=== PATIENT | female | born 1950 | race African-American/Black ===

== ENCOUNTER 2019-07-12 19:27 | Emergency (ER) | payer OTHER, BC ==
[2019-07-12 20:52] VITALS: TEMP 98.1; BMI 25.7
[2019-07-12] MEDS ORDERED: SODIUM CHLORIDE 0.9% 500 ML INFUS.BAG IV ONE (21:34)
--- NOTE | 2019-07-12 21:35 | PDOC ---
Documentation entered by Rosy Mcgill SCRIBE, acting as scribe for Cleopatra Lau MD. Cleopatra Lau MD: This documentation has been prepared by the Nano juarez Nirvannie, SCRIBE, under my direction and personally reviewed by me in its entirety. I confirm that the documentation accurately reflects all work, treatment, procedures, and medical decision making performed by me. History of Present Illness - General Chief Complaint: Weakness Stated Complaint: WEAKNESS Time Seen by Provider: 07/12/19 20:48 History Source: Patient Exam Limitations: No Limitations - History of Present Illness Initial Comments: 07/12/19 23:00 [id number] with significant past medical history of hypertension, CVA (no residual deficits), L renal cancer (s/p partial nephrectomy), chronic low back pain and spinal stenosis, who presents to the emergency department s/p episode of dizziness/blurry vision, tunnel vision and near syncope at approximately 8pm. As per patient, her tripped and fell rushing to her doctors appointment and upon his discharge she experienced a transient episode of feeling hot, lightheaded, nausea and blurred vision. She notes slumping over minimally without losing consciousness and lying on the bed. Patient notes she is under significant stress secondary to her medical problems and testing for her spinal stenosis, her husbands fall that prompted ED visit today, and she missed multiple meals today, last ate in the morning. She denies any loss of consciousness. No trauma. Denies fever, chills, chest pain, SOB, palpitations, V, D, abdominal pain, bladder and bowel problems, leg swelling, No new changes in medications. +stressors, fell today and hasn 't eaten all day since morning. PMD: Dr. Foote 07/12/19 23:12 Past History - Past Medical History Allergies/Adverse Reactions: Allergies Allergy/AdvReac Type Severity Reaction Status Date / Time No Known Allergies Allergy Verified 07/12/19 20:52 Cancer: Yes (kidney) CVA: Yes COPD: No HTN: Yes - Psycho Social/Smoking Cessation Hx Smoking History: Never smoked Review of Systems - Review of Systems Able to Perform ROS?: Yes Comments:: 07/12/19 23:00 Constitutional: no fevers or chills. HEENT: no headache or dizziness. No congestion. +blurry vision CVS: +Presyncope. +Lightheadedness. no cp or syncope. Resp: no sob. No cough. Gastrointestinal: no abdominal pain, or vomiting. No diarrhea. +Nausea. Genitourinary: no urinary sx, hematuria. no urgency or frequency. MUSCULOSKELETAL: No joint pain and swelling. No neck or back pain. SKIN: no redness or skin changes, no discharge, no rash. No wounds. Hematologic: no easy bruising/bleeding. NEUROLOGIC: +dizziness. No headache, LOC or altered mental status. No focal weakness, numbness or tingling. Psych: no anxiety or depression Allergic/Immunologic: no allergies All other systems reviewed and negative, or as documented in HPI. 07/12/19 23:14 *Physical Exam - Vital Signs Last Vital Signs Temp Pulse Resp BP Pulse Ox 98.1 F 77 18 167/92 99 07/12/19 20:49 07/12/19 20:49 07/12/19 20:49 07/12/19 20:49 07/12/19 20:49 - Physical Exam 07/12/19 23:00 General: Well appearing, awake and alert, NAD. HEENT: NCAT, PERRL, EOMI, clear conjunctiva, anicteric, moist mucous membranes , clear oropharynx, no oral lesions.. Neck: neck supple, FROM Resp: CTAB, normal and even respirations, no respiratory distress CVS: RRR, no murmurs, 2+ peripheral pulses throughout, no peripheral edema Abdomen: soft, NTND, no rebound or guarding. No CVAT. Back: nontender, normal inspection and ROM MSK: no edema, STREETER x4, ROM intact. No clubbing or cyanosis. normal bulk and tone. Extremities: no calf tenderness Neuro: alert, oriented appropriately; no focal neurologic deficits, speech clear. 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 finger to nose bilaterally intact, symmetric. Skin: warm and well perfused, cap refill <2 sec, normal color 07/12/19 23:15 Heart Score/ECG Review #1 ECG reviewed & interpreted by me at: 22:40 General ECG Interpretation: Sinus Rhythm, Normal Rate, Normal Intervals 07/12/19 22:55 EKG normal sinus rhythm at 71 bpm, no interval abnormalities, narrow QRS, ST and T wave segments and morphology normal. Nonspecific T wave abnormalities ED Treatment Course - LABORATORY CBC & Chemistry Diagram: 07/12/19 21:49 07/12/19 21:49 Medical Decision Making - Medical Decision Making 07/12/19 21:34 Vital Signs Temp Pulse Resp BP Pulse Ox 98.1 F 77 18 167/92 99 07/12/19 20:49 07/12/19 20:49 07/12/19 20:49 07/12/19 20:49 07/12/19 20:49 ddx near syncope, dehydration, anemia, electrolyte/metabolic derangements, ACS, arrhythmia. vasovagal gait stable, neuro intact no cp or sob. no urinary or infectious sx. no indication for urine testing. given IV hydration labs and lytes wnl, trop neg, reassuring, less likely cardiac. does not meet criteria for heart score, as pt has clear sx of near syncope 2/2 likely vasovagal etiology/limited intake and stressors today. HD appropriate here. back to baseline, gait stable, given food and PO intake, tolerated. Pt to be discharged in stable condition. Patient and family made aware of clinical impression, treatment recommendations and disposition plan, return precautions discussed (including but not limited to new or persistent/worsening symptoms, pain, fevers, or signs of infection, chest pain, respiratory distress , inability to tolerate oral intake, dehydration, syncope, or neurologic changes ). Follow up with PMD as recommended, follow up information provided, take medications as instructed for duration of time. continue with supportive care, avoid triggers and precipitants. All questions answered to patient's satisfaction and expressed understanding and comfort with this. At the time of discharge, the patient is alert, clinically improved, tolerating po and verbalizes understanding of instructions, satisfied with the care received and felt comfortable with the plan. Patient does not suffer from an acute life- threatening medical condition at this time and is safe for outpatient follow- up. 07/12/19 23:16 07/12/19 23:31 Discharge - Discharge Information Problems reviewed: Yes Clinical Impression/Diagnosis: Syncope, near, Dizziness Condition: Good Disposition: HOME - Admission No - Follow up/Referral Referrals: Juvenal Foote [Primary Care Provider] - - Patient Discharge Instructions Patient Printed Discharge Instructions: DI for Syncope in Adults (Fainting), DI for Dehydration -- Adult, DI for Dizziness-Nonvertigo Additional Instructions: 1) Please follow-up with your primary care doctor in the next 1-2 days. Please call tomorrow for for any urgent issues. you were evaluated for your dizziness/near syncopal episode likely from dehydration, poor intake and stress today. 2) You were given a copy of the tests performed today. Please bring the results with you and review them with your primary care doctor. Your laboratory / imaging results were normal, 3) If you have any worsening of symptoms or any other concerns please return to the ED immediately. Return if worsening symptoms including fevers, headache, vomiting, visual or hearing disturbances, abdominal pain, chest pain, shortness of breath, syncope, dehydration, inability to take things by mouth/vomiting, altered mental status, or worsening concerning symptoms. 4) Please continue taking your home medications as directed. avoid any stressors Stay well hydrated and rest adequately. Make an appointment. If you cannot follow-up with your primary care doctor please return to the ED - Post Discharge Activity
[2019-07-12 22:07] LABS: BASO % 0.7 % (0-2.0); EOS % 1.8 % (0-4.5); HEMATOCRIT 41.1 % (32.4-45.2); HEMOGLOBIN 13.5 GM/dL (10.7-15.3); LYMPH % 22.7 % (8-40); MCH 27.8 pg (25.7-33.7); MCHC 32.9 g/dl (32.0-36.0); MEAN CELL VOLUME 84.4 fl (80-96); MEAN PLT VOLUME 9.3 fl (7.5-11.1); MONO % 8.6 % (3.8-10.2); NEUT % 66.2 % (42.8-82.8); PLATELET COUNT 234 K/MM3 (134-434); RBC 4.88 M/mm3 (3.60-5.2); RDW 15.6 % (11.6-15.6); WHITE BLOOD COUNT 5.1 K/mm3 (4.0-10.0)
[2019-07-12 23:25] LABS: ALBUMIN 4.1 g/dl (3.4-5.0); BILIRUBIN,TOTAL 0.3 mg/dL (0.2-1); BLOOD UREA NITROGEN 19.3 mg/dL (7-18); CREATININE 0.9 mg/dL (0.55-1.3); POTASSIUM 4.3 mmol/L (3.5-5.1); TOT PROT 8.1 g/dl (6.4-8.2)
[2019-07-13] VITALS: BP 155/89; PULSE 80
--- NOTE | 2019-07-13 14:10 | EKG ---
Test Reason : Blood Pressure : / mmHG Vent. Rate : 071 BPM Atrial Rate : 071 BPM P-R Int : 160 ms QRS Dur : 078 ms QT Int : 390 ms P-R-T Axes : 048 -01 033 degrees QTc Int : 423 ms NORMAL SINUS RHYTHM POSSIBLE LEFT ATRIAL ENLARGEMENT BORDERLINE ECG NO PREVIOUS ECGS AVAILABLE Confirmed by HARIS ANDERSON MD ([id number]) on 07/13/2019 2:09:53 PM Referred By: Confirmed By:HARIS ANDERSON MD
== END 2019-07-13 00:01 | disposition home or self-care (01) ==
LOC: JER 19:27
DX: R55 Syncope and collapse (principal); R42 Dizziness and giddiness; I10 Essential (primary) hypertension; Z86.73 Personal history of transient ischemic attack (TIA), and cerebral infarction without residual deficits; M54.5 Low back pain; G89.29 Other chronic pain; M48.00 Spinal stenosis, site unspecified; Z85.528 Personal history of other malignant neoplasm of kidney; Z90.5 Acquired absence of kidney
CPT/HCPCS: 36415; 80053; 84484; 85025; 93005; 93010; 99283-25

== ENCOUNTER 2022-05-24 04:38 | Day surgery (SDC) | payer OTHER, BC ==
[2022-05-20 10:42] VITALS: BMI 26.6
[2022-05-24] MEDS ORDERED: BUPIVACAINE HCL/PF 0.5% (5 MG/ML) 30 ML VIAL IJ ONE (15:23)
[2022-05-24] MEDS ORDERED: TRIAMCINOLONE ACET 40MG/1ML VIAL IM ONE (15:23)
[2022-05-24] MEDS ORDERED: LIDOCAINE HCL 1%, 10 MG/ML (50 mL VIAL) INF ONE (15:23)
[2022-05-24] MEDS ORDERED: IOHEXOL 180 MG/1 ML ML IJ ONE (15:23)
[2022-05-24 16:05] VITALS: PULSE 72
[2022-05-24 16:12] VITALS: BP 157/86; RESP 15; TEMP 97.5
== END 2022-05-24 16:05 | disposition home or self-care (01) ==
LOC: JASU-SURG 04:38
PROVIDERS: ATTEND Pain Medicine Pain Medicine
PROC: 3E0U3BZ Introduction of Anesthetic Agent into Joints, Percutaneous Approach (ICD-10-PCS; 2022-05-24)
PROC: 3E0U33Z Introduction of Anti-inflammatory into Joints, Percutaneous Approach (ICD-10-PCS; principal; 2022-05-24 13:50)
DX: M53.3 Sacrococcygeal disorders, not elsewhere classified (principal)
CPT/HCPCS: 76000-TC-FY

== ENCOUNTER 2022-08-02 04:51 | Day surgery (SDC) | payer OTHER, BC ==
[2022-07-28 16:05] VITALS: BMI 26.6
[~2022-08-02 04:51] MED LIST: BUPIVACAINE HCL/PF 0.75% 10 ML VIAL NR ONE; LIDOCAINE HCL 1% PRESERVATIVE FREE - 30ML VIAL IJ ONE
[2022-08-02] MEDS ORDERED: BUPIVACAINE HCL/PF 0.75% 10 ML VIAL ONE (07:17)
[2022-08-02] MEDS ORDERED: LIDOCAINE HCL/PF 1% SDV 5ML VIAL ONE (07:17)
[2022-08-02 09:17] VITALS: RESP 18
[2022-08-02] MEDS ORDERED: LIDOCAINE HCL 1% PRESERVATIVE FREE - 30ML VIAL IJ ONE (10:37)
[2022-08-02] MEDS ORDERED: BUPIVACAINE HCL/PF 0.75% 10 ML VIAL NR ONE (10:39)
[2022-08-02 12:02] VITALS: BP 150/86; PULSE 68; TEMP 98.7
== END 2022-08-02 11:23 | disposition home or self-care (01) ==
LOC: JASU-SURG 04:51
PROVIDERS: ATTEND Pain Medicine Pain Medicine
PROC: 3E0T33Z Introduction of Anti-inflammatory into Peripheral Nerves and Plexi, Percutaneous Approach (ICD-10-PCS; 2022-08-02)
PROC: 3E0T3BZ Introduction of Anesthetic Agent into Peripheral Nerves and Plexi, Percutaneous Approach (ICD-10-PCS; principal; 2022-08-02 10:30)
DX: M47.816 Spondylosis without myelopathy or radiculopathy, lumbar region (principal)
CPT/HCPCS: 76000-TC-FY

== ENCOUNTER → 2022-09-23 | Day surgery (SDC) | payer OTHER, BC ==
[2022-09-19 18:33] VITALS: BMI 26.6
[~2022-09-23] MED LIST changes: +BUPIVACAINE HCL/PF 0.75% 10 ML VIAL ONE; +IOHEXOL 180 MG/1 ML ML IJ ONE; +LIDOCAINE HCL/PF 1% SDV 5ML VIAL ONE
[2022-09-23 11:45] VITALS: BP 134/77; PULSE 62; RESP 18; TEMP 98.7
== END | disposition home or self-care (01) ==
LOC: JASU-SURG 04:05
PROVIDERS: ATTEND Pain Medicine Pain Medicine
PROC: 3E0T33Z Introduction of Anti-inflammatory into Peripheral Nerves and Plexi, Percutaneous Approach (ICD-10-PCS; 2022-09-23)
PROC: 3E0T3BZ Introduction of Anesthetic Agent into Peripheral Nerves and Plexi, Percutaneous Approach (ICD-10-PCS; principal; 2022-09-23 11:45)
DX: M47.816 Spondylosis without myelopathy or radiculopathy, lumbar region (principal)
CPT/HCPCS: 76000-TC-FY

== ENCOUNTER 2022-10-25 04:11 | Day surgery (SDC) | payer OTHER, BC ==
[2022-10-18 17:10] VITALS: BMI 26.6
[~2022-10-25 04:11] MED LIST changes: +ACETAMINOPHEN 500 MG TABLET (FP) PO PRN; -BUPIVACAINE HCL/PF 0.75% 10 ML VIAL ONE; +DEXAMETHASONE SOD PHOSPHATE 10 MG/1 ML VIAL IVPUSH ONE; -IOHEXOL 180 MG/1 ML ML IJ ONE; +LIDOCAINE 1% P/F 10 MG/ML VIAL PNB ONE; -LIDOCAINE HCL 1% PRESERVATIVE FREE - 30ML VIAL IJ ONE; -LIDOCAINE HCL/PF 1% SDV 5ML VIAL ONE; +LIDOCAINE HCL/PF 2% SDV 5ML VIAL PNB ONE
[2022-10-25] MEDS ORDERED: LIDOCAINE HCL/PF 2% SDV 5ML VIAL PNB ONE (14:15)
[2022-10-25] MEDS ORDERED: LIDOCAINE 1% P/F 10 MG/ML VIAL PNB ONE (14:15)
[2022-10-25] MEDS ORDERED: DEXAMETHASONE SOD PHOSPHATE 10 MG/1 ML VIAL IVPUSH ONE (14:15)
[2022-10-25] MEDS ORDERED: BUPIVACAINE HCL/PF 0.75% 10 ML VIAL NR ONE ×2 (14:15→14:32)
[2022-10-25] MEDS ORDERED: ACETAMINOPHEN 500 MG TABLET (FP) PO PRN (15:59)
[2022-10-25 16:39] VITALS: RESP 17
[2022-10-25 16:43] VITALS: BP 129/77; PULSE 62; TEMP 98.1
== END 2022-10-25 15:00 | disposition home or self-care (01) ==
LOC: JASU-SURG 04:11
PROVIDERS: ATTEND Pain Medicine Pain Medicine
PROC: 015B3ZZ Destruction of Lumbar Nerve, Percutaneous Approach (ICD-10-PCS; principal; 2022-10-25 13:30)
DX: M47.816 Spondylosis without myelopathy or radiculopathy, lumbar region (principal)
CPT/HCPCS: 76000-TC-FY; J1100